=== PATIENT | female | born 1960 | race Caucasian/White ===

== ENCOUNTER → 2023-11-26 | Day surgery (SDC) | payer OTHER ==
[~2023-11-26] MED LIST: ASPIRIN81 MG PO; ATORVASTATIN CA20 MG PO; GLIPIZIDE5 MG PO; GLUCAGON FOR INJ 1 MG VIAL ONE; LIDOCAINE HCL 2% LOCAL INJ 5 ML SDV VIAL INJ ONE; LOSARTAN POTASS25 MG PO; METFORMIN HCL500 MG PO; NEURONTIN300 MG PO; OMEGA-31000 MG PO; PROPOFOL IV EMULSION 10 MG/ML 20 ML VIAL ONE; SENNA S TABLET1 EACH PO; ULTRAM 50MG50 MG PO
[2023-11-26] MEDS: LACTATED RINGER'S 1,000 ML ONE (12:12)
[2023-11-26 14:15] VITALS: TEMP 97.4
[2023-11-26 14:35] VITALS: BP 132/84; PULSE 68; RESP 18; O2SAT 99
== END | disposition home or self-care (01) ==
LOC: OR 10:53
PROVIDERS: ATTEND Internal Medicine Gastroenterology
DX: Z12.11 Encounter for screening for malignant neoplasm of colon (principal); D12.3 Benign neoplasm of transverse colon; K63.89 Other specified diseases of intestine; K64.8 Other hemorrhoids; K42.9 Umbilical hernia without obstruction or gangrene; E11.9 Type 2 diabetes mellitus without complications; I10 Essential (primary) hypertension; E78.5 Hyperlipidemia, unspecified; Z01.810 Encounter for preprocedural cardiovascular examination; Z79.82 Long term (current) use of aspirin; Z79.84 Long term (current) use of oral hypoglycemic drugs; Z79.899 Other long term (current) drug therapy
CPT/HCPCS: 45385; 93005; J1610; J2001; J2704; J7121; 45378; J2003

== ENCOUNTER → 2023-12-21 | Outpatient (REF) | payer OTHER ==
[~2023-12-21] MED LIST changes: -GLUCAGON FOR INJ 1 MG VIAL ONE; -LIDOCAINE HCL 2% LOCAL INJ 5 ML SDV VIAL INJ ONE; -PROPOFOL IV EMULSION 10 MG/ML 20 ML VIAL ONE
== END ==
LOC: DX 08:49
PROVIDERS: ATTEND Nurse Practitioner
DX: K43.9 Ventral hernia without obstruction or gangrene (principal); Z86.0100 Personal history of colon polyps, unspecified
CPT/HCPCS: 74280

== ENCOUNTER → 2024-01-28 | Outpatient (REF) | payer OTHER ==
[~2024-01-28] MED LIST changes: +DIATRIZOATE MEGL/DIATRIZOA SOD 30 ML BTL PO ONE; +IOPAMIDOL 370 MG/ML 100 ML INFUS..BTL INJ ONE; +METOPROLOL TART25 MG PO
[2024-01-28 09:00] LABS: CREATININE, SERUM 0.69 mg/dL (0.57-1.11)
== END ==
LOC: CT 07:28
PROVIDERS: ATTEND Surgery
DX: K43.6 Other and unspecified ventral hernia with obstruction, without gangrene (principal)
CPT/HCPCS: 36415; 74177; 82565; 84520; Q9963; Q9967

== ENCOUNTER 2024-02-07 07:37 | Inpatient (IN) | payer OTHER ==
[2024-02-02 13:00] LABS: BASOPHILS % 0.7 % (0.0-1.0); EOSINOPHILS # (AUTO) 0.1 (0.0-0.4); HEMATOCRIT 41.7 % (34.2-44.1); LYMPHOCYTES % 32.8 % (18.0-39.1); MEAN CORPUSCULAR HEMOGLOBIN 29.9 pg (28-32); MEAN CORPUSCULAR HGB CONC 31.2 g/dL (31-35); MEAN CORPUSCULAR VOLUME 95.9 fL (81-99); MONOCYTES # (AUTO) 0.4 (0.2-0.8); MONOCYTES % 6.5 % (4.4-11.3); NEUTROPHILS # (AUTO) 3.5 (2.1-6.9); NEUTROPHILS % 57.8 % (38.7-80.0); PLATELET COUNT 275 x10e3/uL (140-360); RED BLOOD COUNT 4.35 x10e6/uL (3.6-5.1); RED CELL DISTRIBUTION WIDTH 13.4 % (11.7-14.4); WHITE BLOOD COUNT 6.12 x10e3/uL (4.8-10.8)
[2024-02-02 13:31] LABS: ANION GAP 14.2 mmol/L (8-16); CALCIUM 9.7 mg/dL (8.4-10.2); CREATININE, SERUM 0.75 mg/dL (0.57-1.11); POTASSIUM 4.2 mmol/L (3.5-5.1)
[~2024-02-07] VITALS: Ht 162.6 cm; Wt 117.0 kg
[~2024-02-07 07:37] MED LIST changes: -DIATRIZOATE MEGL/DIATRIZOA SOD 30 ML BTL PO ONE; -IOPAMIDOL 370 MG/ML 100 ML INFUS..BTL INJ ONE
[2024-02-07] MEDS: LACTATED RINGER'S 1,000 ML ONE (08:20)
[2024-02-07] MEDS ORDERED: MIDAZOLAM HCL 2 MG/2 ML VIAL ONE (09:46)
[2024-02-07] MEDS ORDERED: FENTANYL CITRATE/PF 100MCG/2 ML INJ ONE (09:46)
[2024-02-07] MEDS ORDERED: PROPOFOL IV EMULSION 10 MG/ML 20 ML VIAL ONE (11:12)
[2024-02-07] MEDS ORDERED: FAMOTIDINE 20 MG/2 ML VIAL IV ONE (11:13)
[2024-02-07] MEDS ORDERED: SUCCINYLCHOLINE CHLORIDE 20 MG/ML 10ML VIAL ONE (11:22)
[2024-02-07] MEDS ORDERED: ONDANSETRON HCL INJ 2MG/ML 2ML 2 MG/ML VIAL ONE (11:45)
[2024-02-07] MEDS ORDERED: ACETAMINOPHEN 1000 MG/100 ML 100 ML IV ONE (11:48)
[2024-02-07] MEDS ORDERED: SUGAMMADEX SODIUM 200 MG/2 ML VIAL IV ONE (12:08)
[2024-02-07] MEDS ORDERED: ROCURONIUM BROMIDE 1 ML IV ONE (12:20)
[2024-02-07] MEDS ORDERED: ONDANSETRON HCL INJ 2MG/ML 2ML 2 MG/ML VIAL IV PRN (13:30)
[2024-02-07] MEDS ORDERED: ACETAMINOPHEN 1000 MG/100 ML IV PRN (13:30)
[2024-02-07] MEDS: FENTANYL CITRATE/PF 100MCG/2 ML INJ ONE (13:42)
[2024-02-07] MEDS: HYDROMORPHONE 1MG/1ML INJ IV PRN (14:35)
[2024-02-07 15:32] VITALS: BP 132/69; PULSE 58; RESP 17; TEMP 97.8; O2SAT 99
[2024-02-07 15:37] VITALS: PULSE 61; RESP 18; O2SAT 94
[2024-02-07] MEDS: SODIUM CHLORIDE 0.9% 1000ML 1,000 ML IV SCH (15:38)
[2024-02-07 16:10] VITALS: BP 132/69; PULSE 61; RESP 18; TEMP 97.8; O2SAT 94
[2024-02-07] MEDS: INSULIN REGULAR, HUMAN 100 UNIT/1 ML SQ SCH (16:39)
[2024-02-07 19:47] VITALS: PULSE 66; RESP 16; O2SAT 95
[2024-02-07 20:00] VITALS: BP 147/75; PULSE 71; RESP 18; TEMP 97.7; O2SAT 97
[2024-02-07 22:00] VITALS: BP 147/75; PULSE 71; RESP 18; TEMP 97.7; O2SAT 97
[2024-02-08] VITALS (7 sets, daily range): BP systolic 120–153; BP diastolic 58–72; PULSE 56–68; RESP 16–21; TEMP 97.8–98.9; O2SAT 96–100
[2024-02-08] MEDS: HYDROCODONE/APAP 7.5MG-325MG 1 EA TAB PO PRN (02:31)
[2024-02-08] MEDS: LORAZEPAM INJ 2 MG/ML VIAL IV PRN (02:41)
[2024-02-08 05:34] LABS: BASOPHILS % 0.4 % (0.0-1.0); EOSINOPHILS % 0.3 % (0.0-6.0); HEMATOCRIT 37.2 % (34.2-44.1); HEMOGLOBIN 11.8 g/dL (12.0-16.0); LYMPHOCYTES # (AUTO) 1.7 (1.0-3.2); LYMPHOCYTES % 18.5 % (18.0-39.1); MEAN CORPUSCULAR HEMOGLOBIN 29.9 pg (28-32); MEAN CORPUSCULAR HGB CONC 31.7 g/dL (31-35); MEAN CORPUSCULAR VOLUME 94.2 fL (81-99); MONOCYTES # (AUTO) 0.8 (0.2-0.8); MONOCYTES % 8.3 % (4.4-11.3); NEUTROPHILS # (AUTO) 6.6 (2.1-6.9); NEUTROPHILS % 72.2 % (38.7-80.0); PLATELET COUNT 247 x10e3/uL (140-360); RED BLOOD COUNT 3.95 x10e6/uL (3.6-5.1); RED CELL DISTRIBUTION WIDTH 13.1 % (11.7-14.4); WHITE BLOOD COUNT 9.13 x10e3/uL (4.8-10.8)
[2024-02-08 06:03] LABS: ANION GAP 13.6 mmol/L (8-16); CALCIUM 8.7 mg/dL (8.4-10.2); CREATININE, SERUM 0.61 mg/dL (0.57-1.11); POTASSIUM 3.6 mmol/L (3.5-5.1)
[2024-02-08] MEDS: LOSARTAN POTASSIUM 25 MG TAB PO SCH (07:44)
[2024-02-08] MEDS: METOPROLOL TARTRATE 25 MG TAB PO SCH (07:44)
[2024-02-08] MEDS: MAGNESIUM HYDROXIDE 30 ML UDC PO ONE (10:15)
[2024-02-08] MEDS: BISACODYL 10 MG SUPP PR SCH (22:05)
[2024-02-09] VITALS (8 sets, daily range): BP systolic 120–140; BP diastolic 56–82; PULSE 63–78; RESP 16–20; TEMP 97.5–98.3; O2SAT 96–98
[2024-02-09 05:48] LABS: BASOPHILS % 0.4 % (0.0-1.0); EOSINOPHILS # (AUTO) 0.1 (0.0-0.4); EOSINOPHILS % 0.5 % (0.0-6.0); HEMATOCRIT 36.3 % (34.2-44.1); HEMOGLOBIN 11.8 g/dL (12.0-16.0); LYMPHOCYTES # (AUTO) 1.7 (1.0-3.2); LYMPHOCYTES % 18.2 % (18.0-39.1); MEAN CORPUSCULAR HEMOGLOBIN 29.6 pg (28-32); MEAN CORPUSCULAR HGB CONC 32.5 g/dL (31-35); MEAN CORPUSCULAR VOLUME 91.2 fL (81-99); MONOCYTES # (AUTO) 0.8 (0.2-0.8); MONOCYTES % 8.5 % (4.4-11.3); NEUTROPHILS # (AUTO) 6.7 (2.1-6.9); NEUTROPHILS % 71.8 % (38.7-80.0); PLATELET COUNT 269 x10e3/uL (140-360); RED BLOOD COUNT 3.98 x10e6/uL (3.6-5.1); RED CELL DISTRIBUTION WIDTH 13.2 % (11.7-14.4)
[2024-02-09 06:20] LABS: ANION GAP 13.6 mmol/L (8-16); CALCIUM 8.8 mg/dL (8.4-10.2); CREATININE, SERUM 0.66 mg/dL (0.57-1.11); POTASSIUM 3.6 mmol/L (3.5-5.1)
[2024-02-09] MEDS: BISACODYL 10 MG SUPP PR ONE (13:45)
[2024-02-09] MEDS: MAGNESIUM HYDROXIDE 30 ML UDC PO ONE (17:34)
[2024-02-09] MEDS: GABAPENTIN 300 MG CAP PO SCH (17:34)
[2024-02-09] MEDS: METFORMIN HCL 500 MG TAB PO SCH (17:34)
[2024-02-10] VITALS: BP 141/78; PULSE 71; RESP 20; TEMP 97.1; O2SAT 96
[2024-02-10 04:00] VITALS: BP 137/78; PULSE 65; RESP 20; TEMP 97.3; O2SAT 95
[2024-02-10 05:54] LABS: BASOPHILS # (AUTO) 0.1 (0.0-0.1); BASOPHILS % 0.6 % (0.0-1.0); EOSINOPHILS # (AUTO) 0.2 (0.0-0.4); EOSINOPHILS % 1.9 % (0.0-6.0); HEMATOCRIT 34.2 % (34.2-44.1); HEMOGLOBIN 10.7 g/dL (12.0-16.0); LYMPHOCYTES # (AUTO) 2.1 (1.0-3.2); MEAN CORPUSCULAR HEMOGLOBIN 30.2 pg (28-32); MEAN CORPUSCULAR HGB CONC 31.3 g/dL (31-35); MEAN CORPUSCULAR VOLUME 96.6 fL (81-99); MONOCYTES # (AUTO) 0.8 (0.2-0.8); MONOCYTES % 9.6 % (4.4-11.3); NEUTROPHILS # (AUTO) 5.3 (2.1-6.9); NEUTROPHILS % 62.5 % (38.7-80.0); PLATELET COUNT 245 x10e3/uL (140-360); RED BLOOD COUNT 3.54 x10e6/uL (3.6-5.1); RED CELL DISTRIBUTION WIDTH 13.2 % (11.7-14.4); WHITE BLOOD COUNT 8.47 x10e3/uL (4.8-10.8)
[2024-02-10 06:19] LABS: ANION GAP 12.5 mmol/L (8-16); CALCIUM 9.2 mg/dL (8.4-10.2); CREATININE, SERUM 0.66 mg/dL (0.57-1.11); POTASSIUM 3.5 mmol/L (3.5-5.1)
[2024-02-10 07:30] VITALS: BP 148/74; PULSE 61; RESP 18; TEMP 96.9; O2SAT 99
[2024-02-10 07:52] VITALS: BP 148/74; PULSE 61; RESP 18; TEMP 96.9; O2SAT 99
[2024-02-10 08:10] VITALS: PULSE 59; RESP 16; O2SAT 93
[2024-02-10] MEDS: GLIPIZIDE 5 MG TAB PO SCH (08:15)
[2024-02-10 11:30] VITALS: BP 127/68; PULSE 70; RESP 20; TEMP 98.1; O2SAT 99
== END 2024-02-10 21:00 | disposition home or self-care (01) | DRG 336 ==
LOC: OR 07:37 → PACU V 13:19 → MED/SURG 14:49
PROVIDERS: ADMIT Surgery; ATTEND Surgery
PROC: 0DNL0ZZ Release Transverse Colon, Open Approach (ICD-10-PCS; 2024-02-07)
PROC: 0DBU0ZZ Excision of Omentum, Open Approach (ICD-10-PCS; 2024-02-07)
PROC: 0DNU0ZZ Release Omentum, Open Approach (ICD-10-PCS; 2024-02-07)
PROC: 0DNV0ZZ Release Mesentery, Open Approach (ICD-10-PCS; 2024-02-07)
PROC: 0WUF0JZ Supplement Abdominal Wall with Synthetic Substitute, Open Approach (ICD-10-PCS; principal; 2024-02-07 11:20)
DX: K43.6 Other and unspecified ventral hernia with obstruction, without gangrene (principal); E66.2 Morbid (severe) obesity with alveolar hypoventilation; Z68.41 Body mass index [BMI] 40.0-44.9, adult; I10 Essential (primary) hypertension; E78.5 Hyperlipidemia, unspecified; E11.9 Type 2 diabetes mellitus without complications; Z79.84 Long term (current) use of oral hypoglycemic drugs; Z79.899 Other long term (current) drug therapy; Z71.81 Spiritual or religious counseling
CPT/HCPCS: 36415; 71046; 80048; 82948; 85025; 88302; 88342; 93005; 94799; C1781; J0330; J0690; J1171; J2060; J2250; J2405; J2470; J7030